=== PATIENT | female | born 2000 | race Asian ===

== ENCOUNTER 2024-04-01 14:40 | Outpatient (REF) | payer OTHER, SELFPAY ==
[2024-04-01 15:07] LABS: Basophils Absolute Auto 0.12 K/uL (0.00-0.30); Basophils Percent Auto 1.6 % (0.0-3.0); Eosinophils Absolute Auto 0.43 K/uL (0.00-0.50); Eosinophils Percent Auto 5.8 % (0.0-7.0); Hemoglobin* 14.1 gm/dL (12.0-16.0); Immature Granulocytes Abs Auto 0.02 K/uL (0.00-0.30); Immature Granulocytes Pct Auto 0.3 %; Lymphocytes Percent Auto 47.1 % (20-44); Mean Corpuscular HGB Conc 33 gm/dL (32-36); Mean Corpuscular Hemoglobin 26 pg (26-34); Mean Corpuscular Volume 79 fL (80-100); Monocytes Percent Auto 6.2 % (0.0-11.0); Platelet Count* 258 K/uL (140-440); Red Blood Count 5.44 m/uL (4.00-5.20); White Blood Count* 7.46 K/uL (4.50-11.00)
[2024-04-01 15:17] LABS: Slide Review Reflex No
[2024-04-01 15:49] LABS: Free T4 Free Thyroxine* 1.23 ng/dL (0.70-1.85)
[2024-04-01 18:27] LABS: Hemoglobin A1C* 5.4 % (0-5.6)
[2024-04-03 03:14] LABS: Estradiol Premenol Female 49 pg/mL
[2024-04-03 12:09] LABS: Prolactin 16.1 ng/mL (2.8-29.2)
[2024-04-03 13:50] LABS: Follicle Stimulating Hormone 7.7 IU/L; Luteinizing Hormone 12.2 IU/L
== END 2024-04-01 14:41 | disposition home or self-care (01) ==
LOC: LAB 14:40
PROVIDERS: Visit Provider Nurse Practitioner
DX: N91.1 Secondary amenorrhea (principal)
CPT/HCPCS: 36415; 82670; 83001; 83002; 83036; 84146; 84439; 84443; 85025

== ENCOUNTER 2024-04-08 14:35 | Outpatient (CLI) | payer OTHER, SELFPAY ==
[2024-04-12 13:47] LABS: Testosterone, Low Level 27 ng/dL (9-55)
== END 2024-04-08 14:36 | disposition home or self-care (01) ==
PROVIDERS: Visit Provider Nurse Practitioner
DX: N91.1 Secondary amenorrhea (principal)
CPT/HCPCS: 36415; 84403